=== PATIENT | female | born 1990 | race Caucasian/White ===

== ENCOUNTER 2023-07-28 19:49 | Emergency (ER) | payer OTHER ==
[2023-07-28] MEDS: Albuterol/Ipratropium 3.0-0.5 MG/3 ML Neb Soln NEB ONE (20:11)
[2023-07-28 20:50] LABS: CORONAVIRUS COVID-19 NAA NEGATIVE (NEGATIVE); INFLUENZA A NAA NEGATIVE (NEGATIVE); INFLUENZA B NAA NEGATIVE (NEGATIVE); RESPIRATORY SYNCYTIAL VIR NAA NEGATIVE (NEGATIVE)
[2023-07-28] MEDS: Take Home: Albuterol 18 GM Inhaler, 1 Inhaler Pack INH PRN (21:12)
== END 2023-07-28 21:10 | disposition home or self-care (01) ==
LOC: VM.ED 19:49
DX: J45.909 Unspecified asthma, uncomplicated (principal); Z79.01 Long term (current) use of anticoagulants; Z72.0 Tobacco use; Z20.822 Contact with and (suspected) exposure to COVID-19
CPT/HCPCS: 0241U; 71045; 94640; 99284; 99285; A9270-GY; J7620-GY